=== PATIENT | male | born 1950 ===

== ENCOUNTER 2022-04-16 22:46 | Outpatient (REF) | payer MEDICARE, OTHER, SELFPAY ==
[2022-04-16 23:10] LABS: Hemoglobin A1C 5.7 % (<5.7)
[2022-04-16 23:18] LABS: ALT 34 U/L (16-63); AST 22 U/L (15-37); Albumin 3.6 g/dL (3.4-5.0); Alkaline Phosphatase 96 U/L (46-116); Anion Gap 8.7 mmol/L (3-11); BUN 16 mg/dL (7-18); Bilirubin, Total 0.4 mg/dL (0.2-1.0); CO2 27.3 mmol/L (21.0-32.0); CREATININE 0.9 mg/dL (0.70-1.30); Calcium 9.3 mg/dL (8.5-10.1); Calculated LDL 52 mg/dL (<100); Chloride 102 mmol/L (98-107); Cholesterol 122 mg/dL (<200); Estimated GFR 90.74 (mL/min/1.73m2); Glucose 90 mg/dL (74-106); HDL Cholesterol 54 mg/dL (40-60); Potassium 4.1 mmol/L (3.5-5.1); Sodium 138 mmol/L (136-145); TSH (W/Ref FT4) 0.86 uIU/mL (0.36-3.74); Total Protein 8.1 g/dL (6.4-8.2); Triglyceride 84 mg/dL (<150)
[2022-04-16 23:33] LABS: Abs Immature Grans 0.06 10^3/uL (0.0-0.06); Absolute Basophil Count 0.08 10^3/uL (0.0-0.2); Absolute Eosinophil Count 0.21 10^3/uL (0.0-0.7); Absolute Lymphocyte Count 2.19 10^3/uL (1.2-3.4); Absolute Monocyte Count 1.98 10^3/uL (0.1-0.8); Absolute Neutrophil Count 14.69 10^3/uL (1.2-6.7); Basophils % 0.4; Eosinophils % 1.1; HCT 41.5 % (40.0-50.0); Immature Grans % 0.3; Lymphocytes % 11.4; MCH 28.3 pg (27.0-33.0); MCHC 33.7 % (32.0-36.0); MCV 84 fL (80-95); MPV 10.4 fL (8.0-11.0); Monocytes % 10.3; Neutrophils % 76.5; Platelet Count 302 10^3/uL (130-400); RBC 4.95 10^6/uL (4.36-5.78); RDW-SD 49.3 fL
== END 2022-04-16 22:47 | disposition home or self-care (01) ==
LOC: NCHCN 22:46
PROVIDERS: Visit Provider Nurse Practitioner Family
DX: I10 Essential (primary) hypertension (principal); Z13.220 Encounter for screening for lipoid disorders; R79.89 Other specified abnormal findings of blood chemistry
CPT/HCPCS: 80053; 80061; 83036; 84443; 85025

== ENCOUNTER 2022-06-04 18:37 | Outpatient (REF) | payer MEDICARE, MEDICAID, SELFPAY ==
[2022-06-04 20:52] LABS: HGB 14.8 g/dL (13.5-17.5); MCH 28.3 pg (27.0-33.0); MCHC 32.9 % (32.0-36.0); MCV 86 fL (80-95); MPV 11.1 fL (8.0-11.0); Platelet Count 348 10^3/uL (130-400); RBC 5.23 10^6/uL (4.36-5.78); RDW 15.1 % (11.8-14.1); RDW-SD 47.5 fL; WBC 16.18 10^3/uL (4.4-10.8)
[2022-06-04 21:11] LABS: Anion Gap 7.5 mmol/L (3-11); BUN 18 mg/dL (7-18); CO2 27.5 mmol/L (21.0-32.0); Calcium 9.3 mg/dL (8.5-10.1); Chloride 103 mmol/L (98-107); Estimated GFR 79.97 (mL/min/1.73m2); Glucose 94 mg/dL (74-106); Potassium 4.1 mmol/L (3.5-5.1); Sodium 138 mmol/L (136-145)
[2022-06-04 21:54] LABS: Hemoglobin A1C 5.4 % (<5.7)
== END 2022-06-04 18:38 | disposition home or self-care (01) ==
LOC: NCHCN 18:37
PROVIDERS: Visit Provider Nurse Practitioner Family
DX: R73.9 Hyperglycemia, unspecified (principal); I50.22 Chronic systolic (congestive) heart failure; I10 Essential (primary) hypertension; D63.8 Anemia in other chronic diseases classified elsewhere
CPT/HCPCS: 80048; 85027; 83036

== ENCOUNTER 2022-10-23 17:22 | Outpatient (REF) | payer MEDICARE, MEDICAID, SELFPAY ==
[2022-10-23 22:11] LABS: Abs Immature Grans 0.05 10^3/uL (0.0-0.06); Absolute Basophil Count 0.07 10^3/uL (0.0-0.2); Absolute Lymphocyte Count 1.95 10^3/uL (1.2-3.4); Absolute Neutrophil Count 10.94 10^3/uL (1.2-6.7); Basophils % 0.5; Eosinophils % 1.6; HCT 44.2 % (40.0-50.0); HGB 14.8 g/dL (13.5-17.5); Immature Grans % 0.3; Lymphocytes % 13.2; MCH 29.9 pg (27.0-33.0); MCHC 33.5 % (32.0-36.0); MCV 89 fL (80-95); MPV 12.1 fL (8.0-11.0); Monocytes % 10.5; Neutrophils % 73.9; Platelet Count 284 10^3/uL (130-400); RBC 4.95 10^6/uL (4.36-5.78); RDW 14.3 % (11.8-14.1); RDW-SD 46.4 fL
[2022-10-23 22:19] LABS: Hemoglobin A1C 5.5 % (<5.7)
[2022-10-23 22:30] LABS: Anion Gap 10.4 mmol/L (3-11); BUN 25 mg/dL (7-18); CO2 24.6 mmol/L (21.0-32.0); CREATININE 0.9 mg/dL (0.70-1.30); Calcium 9.3 mg/dL (8.5-10.1); Chloride 106 mmol/L (98-107); Estimated GFR 90.74 (mL/min/1.73m2); Glucose 142 mg/dL (74-106); Potassium 3.9 mmol/L (3.5-5.1); Sodium 141 mmol/L (136-145)
[2022-10-23 22:45] LABS: Absolute Eosinophil Count 0.24 10^3/uL (0.0-0.7); Absolute Monocyte Count 1.55 10^3/uL (0.1-0.8)
[2022-10-23 23:10] LABS: Diff Comment Diff Reviewed; RBC Morphology Normal
== END 2022-10-23 17:23 | disposition home or self-care (01) ==
LOC: NCHCN 17:22
PROVIDERS: Visit Provider Nurse Practitioner Family
DX: I10 Essential (primary) hypertension (principal); D72.829 Elevated white blood cell count, unspecified; R73.09 Other abnormal glucose
CPT/HCPCS: 80048; 83036; 85007; 85025

== ENCOUNTER 2023-10-09 17:01 | Outpatient (REF) | payer MEDICARE, MEDICAID, SELFPAY ==
[2023-10-09 16:01] LABS: HCT 42.4 % (40.0-50.0); HGB 14.5 g/dL (13.5-17.5); MCH 29.7 pg (27.0-33.0); MCHC 34.2 % (32.0-36.0); MCV 87 fL (80-95); MPV 11.1 fL (8.0-11.0); Platelet Count 296 10^3/uL (130-400); RBC 4.89 10^6/uL (4.36-5.78); RDW 15.3 % (11.8-14.1); RDW-SD 48.4 fL; WBC 11.31 10^3/uL (4.4-10.8)
[2023-10-09 16:44] LABS: Vitamin D 25 Total 51.2 ng/mL (30-100)
[2023-10-09 16:48] LABS: ALT 33 U/L (16-63); AST 21 U/L (15-37); Albumin 3.3 g/dL (3.4-5.0); Alkaline Phosphatase 94 U/L (46-116); Anion Gap 7.5 mmol/L (3-11); BUN 11 mg/dL (7-18); Bilirubin, Total 0.4 mg/dL (0.2-1.0); CO2 30.5 mmol/L (21.0-32.0); CREATININE 0.9 mg/dL (0.70-1.30); Calcium 9.3 mg/dL (8.5-10.1); Chloride 103 mmol/L (98-107); Estimated GFR 90.18 (mL/min/1.73m2); Glucose 116 mg/dL (74-106); Magnesium 2.3 mg/dL (1.8-2.4); Potassium 4.2 mmol/L (3.5-5.1); Sodium 141 mmol/L (136-145); Total Protein 7.6 g/dL (6.4-8.2); Vitamin B12 521 pg/mL (193-986)
[2023-10-09 17:33] LABS: Hemoglobin A1C 5.7 % (<5.7)
== END 2023-10-09 17:02 | disposition home or self-care (01) ==
LOC: NCHCN 17:01
PROVIDERS: Visit Provider Nurse Practitioner Family
DX: I10 Essential (primary) hypertension (principal); R73.03 Prediabetes; E55.9 Vitamin D deficiency, unspecified; Z51.81 Encounter for therapeutic drug level monitoring; Z79.899 Other long term (current) drug therapy
CPT/HCPCS: 80053; 82306; 85027; 82607; 83036; 83735

== ENCOUNTER 2024-08-25 10:10 | Outpatient (REF) | payer MEDICARE, MEDICAID, SELFPAY ==
[2024-08-25 15:56] LABS: MCH 30.2 pg (27.0-33.0); MCHC 33.3 % (32.0-36.0); MCV 91 fL (80-95); MPV 10.3 fL (8.0-11.0); Platelet Count 516 10^3/uL (130-400); RDW 13.5 % (11.8-14.1); RDW-SD 44.3 fL
== END 2024-08-25 10:11 | disposition home or self-care (01) ==
LOC: NCHCN 10:10
PROVIDERS: Visit Provider Physician Assistant
DX: R06.00 Dyspnea, unspecified (principal)
CPT/HCPCS: 80053; 85027